=== PATIENT | female | born 1960 | race Caucasian/White ===

== ENCOUNTER 2019-06-27 12:50 | Inpatient (IN) | payer BC ==
[2019-06-27] MEDS ORDERED: SODIUM CHLORIDE 0.9% 1,000 ML IV STA (13:22)
[2019-06-27] MEDS ORDERED: HYDROmorphone 0.5 MG/0.5 ML SYRINGE IVP STA (13:33)
[2019-06-27] MEDS ORDERED: ONDANSETRON 4 MG/2 ML VIAL IVP STA (13:33)
--- NOTE | 2019-06-27 13:36 | ED ---
Abdominal Pain HPI - General Source: patient, RN notes reviewed Mode of arrival: ambulatory Limitations: no limitations <Saul Nazario - Last Filed: 06/27/19 14:49> <Blade Giron - Last Filed: 06/27/19 15:58> - General Chief Complaint: Abdominal Pain Stated Complaint: abd pain Time Seen by Provider: 06/27/19 13:22 - History of Present Illness Initial Comments: 58-year-old female presents emergency Department with chief complaint of abdominal pain. Patient states pain started yesterday afternoon but worsened about cannot tolerate around 3:00 this morning. She's had associated nausea vomiting. Patient states she seen in urgent care and sent here for further evaluation. Patient states she does have a history of breast cancer states that she'll lumpectomy in April scheduled to start radiation. Patient denies any fevers or chills. Patient denies any significant diarrhea or dysuria. Patient offers no complaints. (Saul Nazario) - Related Data Allergies Allergy/AdvReac Type Severity Reaction Status Date / Time No Known Allergies Allergy Verified 06/27/19 13:02 Review of Systems ROS Other: All systems not noted in ROS Statement are negative. <Saul Nazario - Last Filed: 06/27/19 14:49> ROS Other: All systems not noted in ROS Statement are negative. <Blade Giron - Last Filed: 06/27/19 15:58> ROS Statement: Those systems with pertinent positive or pertinent negative responses have been documented in the HPI. Past Medical History Past Medical History: Hypertension History of Any Multi-Drug Resistant Organisms: None Reported Additional Past Surgical History / Comment(s): Breast CA Smoking Status: Current some day smoker Past Alcohol Use History: Occasional Past Drug Use History: None Reported <Saul Nazario - Last Filed: 06/27/19 14:49> General Exam Limitations: no limitations General appearance: alert, in no apparent distress Head exam: Present: atraumatic, normocephalic, normal inspection Eye exam: Present: normal appearance, PERRL, EOMI. Absent: scleral icterus, conjunctival injection, periorbital swelling ENT exam: Present: normal exam, normal oropharynx, mucous membranes moist Neck exam: Present: normal inspection. Absent: tenderness, meningismus, lymphadenopathy Respiratory exam: Present: normal lung sounds bilaterally. Absent: respiratory distress, wheezes, rales, rhonchi, stridor Cardiovascular Exam: Present: regular rate, normal rhythm, normal heart sounds. Absent: systolic murmur, diastolic murmur, rubs, gallop, clicks GI/Abdominal exam: Present: soft, tenderness (Moderate to severe right upper quadrant tenderness), normal bowel sounds. Absent: distended, guarding, rebound, rigid Back exam: Absent: CVA tenderness (R), CVA tenderness (L) Neurological exam: Present: alert Skin exam: Present: warm, dry, intact, normal color. Absent: rash <Saul Nazario - Last Filed: 06/27/19 14:49> Course <Blade Giron - Last Filed: 06/27/19 15:58> Vital Signs 06/27/19 12:56 Temperature 97.8 F Pulse Rate 79 Respiratory 18 Rate Blood Pressure 166/105 O2 Sat by Pulse 99 Oximetry - Reevaluation(s) Reevaluation #1: 06/27/19 15:57 PA supervision: I proceeded [id number] evaluation the patient does present w ith complains right upper quadrant abdominal pain. It did start yesterday. He's had intermittent episodes of this over the past several months. He is found on evaluation have a tender right upper quadrant does have elevation of her liver enzymes and bilirubin. Ultrasound shows evidence of multiple gallstones and thickened gallbladder wall the common bile duct however does not appear to be dilated at this time. I did discuss the case with Dr. Ohara as well as Dr. Hartman. Patient will be admitted place an IV antibiotics GI will be consulted for consideration of ERCP. (Blade Giron) Medical Decision Making - Lab Data Result diagrams: 06/27/19 13:31 06/27/19 13:31 <Saul Nazario - Last Filed: 06/27/19 14:49> - Lab Data Result diagrams: 06/27/19 13:31 06/27/19 13:31 <Blade Giron - Last Filed: 06/27/19 15:58> - Medical Decision Making Patient's found to have cholelithiasis with evidence of acute cholecystitis. Patient was placed on antibiotics. Patient will be admitted for possible ERCP and cholecystectomy. (Saul Nazario) - Lab Data Lab Results 03/05/20 03/05/20 03/05/20 Range/Units 13:31 13:31 13:31 WBC 6.5 (3.8-10.6) k/uL RBC 5.11 (3.80-5.40) m/uL Hgb 15.1 (11.4-16.0) gm/dL Hct 45.0 (34.0-46.0) % MCV 88.1 (80.0-100.0) fL MCH 29.5 (25.0-35.0) pg MCHC 33.5 (31.0-37.0) g/dL RDW 12.8 (11.5-15.5) % Plt Count 230 (150-450) k/uL Neutrophils % 80 % Lymphocytes % 12 % Monocytes % 5 % Eosinophils % 1 % Basophils % 1 % Neutrophils # 5.2 (1.3-7.7) k/uL Lymphocytes # 0.8 L (1.0-4.8) k/uL Monocytes # 0.3 (0-1.0) k/uL Eosinophils # 0.1 (0-0.7) k/uL Basophils # 0.1 (0-0.2) k/uL PT 10.3 (9.0-12.0) sec INR 1.0 (<1.2) APTT 24.3 (22.0-30.0) sec Sodium 136 L (137-145) mmol/L Potassium 4.2 (3.5-5.1) mmol/L Chloride 103 (98-107) mmol/L Carbon Dioxide 26 (22-30) mmol/L Anion Gap 7 mmol/L BUN 17 (7-17) mg/dL Creatinine 0.67 (0.52-1.04) mg/dL Est GFR (CKD-EPI)AfAm >90 (>60 ml/min/1.73 sqM) Est GFR (CKD-EPI)NonAf >90 (>60 ml/min/1.73 sqM) Glucose 127 H (74-99) mg/dL Calcium 9.5 (8.4-10.2) mg/dL Total Bilirubin 3.7 H (0.2-1.3) mg/dL AST 1210 H (14-36) U/L ALT 1284 H (4-34) U/L Alkaline Phosphatase 151 H (38-126) U/L Total Protein 7.0 (6.3-8.2) g/dL Albumin 4.5 (3.5-5.0) g/dL Amylase 33 (30-110) U/L Lipase 96 (23-300) U/L Urine Color Urine Appearance (Clear) Urine pH (5.0-8.0) Ur Specific [place] (1.001-1.035) Urine Protein (Negative) Urine Glucose (UA) (Negative) Urine Ketones (Negative) Urine Blood (Negative) Urine Nitrite (Negative) Urine Bilirubin (Negative) Urine Urobilinogen (<2.0) mg/dL Ur Leukocyte Esterase (Negative) Urine RBC (0-5) /hpf Urine WBC (0-5) /hpf Ur Squamous Epith Cells (0-4) /hpf Urine Bacteria (None) /hpf Urine Mucus (None) /hpf 06/27/19 Range/Units 14:40 WBC (3.8-10.6) k/uL RBC (3.80-5.40) m/uL Hgb (11.4-16.0) gm/dL Hct (34.0-46.0) % MCV (80.0-100.0) fL MCH (25.0-35.0) pg MCHC (31.0-37.0) g/dL RDW (11.5-15.5) % Plt Count (150-450) k/uL Neutrophils % % Lymphocytes % % Monocytes % % Eosinophils % % Basophils % % Neutrophils # (1.3-7.7) k/uL Lymphocytes # (1.0-4.8) k/uL Monocytes # (0-1.0) k/uL Eosinophils # (0-0.7) k/uL Basophils # (0-0.2) k/uL PT (9.0-12.0) sec INR (<1.2) APTT (22.0-30.0) sec Sodium (137-145) mmol/L Potassium (3.5-5.1) mmol/L Chloride (98-107) mmol/L Carbon Dioxide (22-30) mmol/L Anion Gap mmol/L BUN (7-17) mg/dL Creatinine (0.52-1.04) mg/dL Est GFR (CKD-EPI)AfAm (>60 ml/min/1.73 sqM) Est GFR (CKD-EPI)NonAf (>60 ml/min/1.73 sqM) Glucose (74-99) mg/dL Calcium (8.4-10.2) mg/dL Total Bilirubin (0.2-1.3) mg/dL AST (14-36) U/L ALT (4-34) U/L Alkaline Phosphatase (38-126) U/L Total Protein (6.3-8.2) g/dL Albumin (3.5-5.0) g/dL Amylase (30-110) U/L Lipase (23-300) U/L Urine Color Dark Yellow Urine Appearance Clear (Clear) Urine pH 6.5 (5.0-8.0) Ur Specific [place] 1.028 (1.001-1.035) Urine Protein 1+ H (Negative) Urine Glucose (UA) Negative (Negative) Urine Ketones 1+ H (Negative) Urine Blood Small H (Negative) Urine Nitrite Negative (Negative) Urine Bilirubin 2+ H (Negative) Urine Urobilinogen 12.0 (<2.0) mg/dL Ur Leukocyte Esterase Small H (Negative) Urine RBC 16 H (0-5) /hpf Urine WBC 2 (0-5) /hpf Ur Squamous Epith Cells 3 (0-4) /hpf Urine Bacteria Rare H (None) /hpf Urine Mucus Rare H (None) /hpf Disposition <Saul Nazario - Last Filed: 06/27/19 14:49> <Blade Giron - Last Filed: 06/27/19 15:58> Clinical Impression: Cholecystitis, acute with cholelithiasis, Hyperbilirubinemia, Transaminitis Disposition: ADMITTED IP TO THIS [facility] Condition: Fair Referrals: Nonstaff,Physician [Primary Care Provider] - 1-2 days
[2019-06-27 13:53] LABS: Basophils # (A) 0.1 k/uL (0-0.2); Basophils % (A) 1 %; Eosinophils # (A) 0.1 k/uL (0-0.7); Eosinophils % (A) 1 %; HGB 15.1 gm/dL (11.4-16.0); Lymphocytes # (A) 0.8 k/uL (1.0-4.8); Lymphocytes % (A) 12 %; MCH 29.5 pg (25.0-35.0); MCHC 33.5 g/dL (31.0-37.0); MCV 88.1 fL (80.0-100.0); Mean Platelet Volume 6.6; Monocytes # (A) 0.3 k/uL (0-1.0); Monocytes % (A) 5 %; Neutrophils # (A) 5.2 k/uL (1.3-7.7); Neutrophils % (A) 80 %; Platelet Count 230 k/uL (150-450); RBC 5.11 m/uL (3.80-5.40); RDW 12.8 % (11.5-15.5); WBC 6.5 k/uL (3.8-10.6)
[2019-06-27 14:11] LABS: African American GFR (CKD) >90 (>60 ml/min/1.73 sqM); Albumin 4.5 g/dL (3.5-5.0); Alkaline Phosphatase 151 U/L (38-126); Amylase 33 U/L (30-110); Anion Gap 7 mmol/L; Blood Urea Nitrogen 17 mg/dL (7-17); Calcium 9.5 mg/dL (8.4-10.2); Carbon Dioxide 26 mmol/L (22-30); Chloride 103 mmol/L (98-107); Glucose 127 mg/dL (74-99); Non-African American GFR(CKD) >90 (>60 ml/min/1.73 sqM); Potassium 4.2 mmol/L (3.5-5.1); Sodium 136 mmol/L (137-145); Total Bilirubin 3.7 mg/dL (0.2-1.3)
[2019-06-27 14:13] LABS: Partial Thromboplastin Time 24.3 sec (22.0-30.0); Prothrombin Time 10.3 sec (9.0-12.0)
[2019-06-27 14:19] LABS: AST 1210 U/L (14-36)
[2019-06-27 14:20] LABS: ALT 1284 U/L (4-34)
--- NOTE | 2019-06-27 14:36 | US ---
EXAMINATION TYPE: US gallbladder DATE OF EXAM: 06/27/2019 COMPARISON: NONE CLINICAL HISTORY: pain. Abdomen pain and N/V x 2 days EXAM MEASUREMENTS: Liver Length: 15.9 cm Gallbladder Wall: 0.4 cm CBD: 0.4 cm Right Kidney: 9.9 x 4.4 x 4.1 cm Pancreas: obscured by overlying midline bowel gas Liver: wnl Gallbladder: multiple shadowing stones seen, wall mildly thickened at 0.4cm Evidence for sonographic De's sign: yes CBD: visualized portions wnl, limited by overlying bowel gas Right Kidney: wnl IMPRESSION: 1. Cholelithiasis, gallbladder wall thickening, and positive sonographic De sign. Early acute cho lecystitis is suspected despite the normal caliber of the common bile duct. Correlate with physical e xam and serum laboratory values. 2. Pancreas is obscured by overlying bowel gas.
[2019-06-27] MEDS ORDERED: PIPERACILLIN-TAZOBACTAM 3.375 GM in SODIUM CHLORIDE 0.9% 100 ML IVPB STA (14:49)
[2019-06-27 14:51] LABS: Appearance,Urine Clear (Clear); Bacteria,Urine Rare /hpf; Bilirubin,Urine 2+ (Negative); Blood,Urine Small (Negative); Color,Urine Dark Yellow; Glucose,Urine (UA) Negative (Negative); Ketones,Urine 1+ (Negative); Leukocyte Esterase,Urine Small (Negative); Mucus,Urine Rare /hpf; Nitrite,Urine Negative (Negative); PH, Urine 6.5 (5.0-8.0); Protein,Urine 1+ (Negative); RBC,Urine 16 /hpf (0-5); Specific Gravity,Urine 1.028 (1.001-1.035); Squamous Epithelial Cell,Urine 3 /hpf (0-4); WBC,Urine 2 /hpf (0-5)
[2019-06-27] MEDS ORDERED: NALOXONE 0.4 MG/ML 1 ML VIAL IV PRN (15:44)
[2019-06-27] MEDS: HYDROmorphone 0.5 MG/0.5 ML SYRINGE IVP PRN ×2 (16:42→20:25)
[2019-06-27] MEDS: SODIUM CHLORIDE 0.9% 1,000 ML IV SCH (17:02)
--- NOTE | 2019-06-27 19:58 | P.HPIM ---
History of Present Illness H&P Date: 06/27/19 Chief Complaint: Abdominal pain Patient is a 58-year-old female with breast cancer with recent vasectomy due to start radiation on 07/03/22 at [facility], hypertension, and intermittent tobacco use who presented to the emergency department with abdominal pain. In the emergency department she underwent an extensive evaluation. Her vital signs within normal limits on admission. Her initial laboratory analysis showed sodium 136, glucose 127, bilirubin 3.7, AST 112 210, ALT 1284, alkaline phosphatase of 151. She underwent a liver ultrasound which showed gallstones consistent with acute cholecystitis. They were unable to visualize all of the common bile duct. She was admitted to Dr. Ohara we are asked to consult for medical management. Patient seen and examined at bedside. She reports Abdominal pain starting yesterday and worsened at 3 am. Pain in RUQ and radiate to back and right shoulder. + nausea and vomiting, decreased appetitie, no diarrhea or constipation. No fevers. Having intermitted bouts for the last several months. Lumpectomy due to breast cancer, due to start radiation next 07/04/2019. Stage I nothing in the nodes, ER/CA +, Her2 negative. Review of Systems Pertinent positives and negatives as discussed in HPI, a complete review of systems was performed and all other systems are negative. Past Medical History Past Medical History: Hypertension Additional Past Medical History / Comment(s): breast cancer History of Any Multi-Drug Resistant Organisms: None Reported Additional Past Surgical History / Comment(s): Lumpectomy, catarect, bu nionectomy X 2, Histosalpingogram Smoking Status: Current some day smoker Past Alcohol Use History: Occasional Past Drug Use History: None Reported Additional History: special manager medical device, smoking and drinking on girls night out only. - Past Family History Father Family Medical History: Diabetes Mellitus Additional Family Medical History / Comment(s): COPD, CHF, no hx of [place] Medications and Allergies Home Medications Medication Instructions Recorded Confirmed Type Acetaminophen Tab [Tylenol] 650 mg PO Q6H PRN 06/27/19 06/27/19 History Ibuprofen [Advil] 800 mg PO Q8HR PRN 06/27/19 06/27/19 History Lisinopril-Hctz 20-12.5 mg 1 tab PO DAILY 06/27/19 06/27/19 History [Zestoretic 20-12.5] Allergies Allergy/AdvReac Type Severity Reaction Status Date / Time No Known Allergies Allergy Verified 06/27/19 19:04 Physical Exam Osteopathic Statement: *. No significant issues noted on an osteopathic structural exam other than those noted in the History and Physical/Consult. Vitals: Vital Signs Temp Pulse Resp BP BP Pulse Ox 06/27/19 17:41 98.0 F 16 162/70 96 06/27/19 16:45 98.2 F 75 16 148/89 98 06/27/19 12:56 97.8 F 79 18 166/105 99 Intake and Output 06/27/19 06/27/19 06/27/19 06:59 14:59 22:59 Other: Weight 78.925 kg 78.925 kg General: non toxic, no distress, appears at stated age, normal weight Derm: no unusual rashes/lesions no unusual ecchymoses, warm, dry Head: atraumatic, normocephalic, symmetric Eyes: EOMI, no lid lag, anicteric sclera, pupils equal round reactive to light ENT: Nose and ears atraumatic, no thrush, no pharyngeal erythema Neck: No thyromegaly, no cervical lymphadenopathy, trachea midline, supple Mouth: no lip lesion, mucus membranes moist Cardiovascular: S1S2 reg, no murmur, positive posterior tibial pulse bilateral, trace edema, capillary refill less than 2 seconds Lungs: CTA bilateral, no rhonchi, no rales , no accessory muscle use Abdominal: soft, + tender to palpation RUQ, no guarding, no appreciable organomegaly, normal bowel sounds Ext: no gross muscle atrophy, muscle strength grossly intact, no contractures, Neuro: CN II-XI grossly intact, light touch intact all 4 extremities, finger to nose within normal limits, Psych: Alert, oriented, appropriate affect Results CBC & Chem 7: 06/27/19 13:31 06/27/19 13:31 Labs: Abnormal Lab Results - Last 24 Hours (Table) 06/27/19 06/27/19 06/27/19 Range/Units 13:31 13:31 14:40 Lymphocytes # 0.8 L (1.0-4.8) k/uL Sodium 136 L (137-145) mmol/L Glucose 127 H (74-99) mg/dL Total Bilirubin 3.7 H (0.2-1.3) mg/dL AST 1210 H (14-36) U/L ALT 1284 H (4-34) U/L Alkaline Phosphatase 151 H (38-126) U/L Urine Protein 1+ H (Negative) Urine Ketones 1+ H (Negative) Urine Blood Small H (Negative) Urine Bilirubin 2+ H (Negative) Ur Leukocyte Esterase Small H (Negative) Urine RBC 16 H (0-5) /hpf Urine Bacteria Rare H (None) /hpf Urine Mucus Rare H (None) /hpf US - abdomen: report reviewed Thrombosis Risk Factor Assmnt - DVT/VTE Prophylaxis DVT/VTE Prophylaxis: Pharmacologic Prophylaxis ordered Assessment and Plan Assessment: Acute cholecystitis - surgery and GI consult - pain control - no indications for abx at this point in time - ice chips only Breast cancer - awaiting starting radiation due to start 07/04/19 HTN, controlled - resume lisinopril - follow BP Patient is medically optimized for surgery. No further testing needed. Thank you for allowing us to participate in the care of this pleasant patient. Do not hesitate to contact us with questions. Someone can be reached from the [facility] hospitalist group all hours of the day at [phone] or via perfect serve.
[2019-06-27] MEDS: ONDANSETRON 4 MG/2 ML VIAL IVP PRN (20:27)
[2019-06-28] MEDS: HYDROmorphone 0.5 MG/0.5 ML SYRINGE IVP PRN ×4 (00:59→13:54)
[2019-06-28] MEDS: SODIUM CHLORIDE 0.9% 1,000 ML IV SCH ×2 (05:27→19:30)
[2019-06-28] MEDS: LISINOPRIL-HCTZ 20-12.5 MG 1 EACH TAB PO SCH (07:14)
[2019-06-28 07:55] LABS: HCT 38.7 % (34.0-46.0); MCH 30.2 pg (25.0-35.0); MCHC 33.7 g/dL (31.0-37.0); MCV 89.7 fL (80.0-100.0); Mean Platelet Volume 6.9; Platelet Count 158 k/uL (150-450); RBC 4.31 m/uL (3.80-5.40); WBC 7.1 k/uL (3.8-10.6)
[2019-06-28 08:03] LABS: Prothrombin Time 10.7 sec (9.0-12.0)
[2019-06-28 08:12] LABS: AST 419 U/L (14-36); African American GFR (CKD) >90 (>60 ml/min/1.73 sqM); Albumin 3.6 g/dL (3.5-5.0); Alkaline Phosphatase 134 U/L (38-126); Anion Gap 5 mmol/L; Blood Urea Nitrogen 10 mg/dL (7-17); Calcium 8.8 mg/dL (8.4-10.2); Carbon Dioxide 25 mmol/L (22-30); Chloride 109 mmol/L (98-107); Glucose 100 mg/dL (74-99); Non-African American GFR(CKD) >90 (>60 ml/min/1.73 sqM); Potassium 3.9 mmol/L (3.5-5.1); Sodium 139 mmol/L (137-145); Total Bilirubin 4.1 mg/dL (0.2-1.3)
[2019-06-28 08:21] LABS: ALT 877 U/L (4-34)
--- NOTE | 2019-06-28 10:58 | P.GSCN ---
<Milady Lara A - Last Filed: 06/28/19 10:56> History of Present Illness Consult date: 06/28/19 Reason for Consult: Acute cholecystitis, cholelithiasis Requesting physician: Saul Nazario History of present illness: CHIEF COMPLAINT: Abdominal pain HISTORY OF PRESENT ILLNESS: 58-year-old female who presented to the emergency room a chief complaint of abdominal pain. Patient reports she began having right upper quadrant pain. She reports nausea and vomiting yesterday as well. She denies fever or chills. Denies diarrhea or constipation. Patient reports she has been having intermittent right upper quadrant pain for the past 2-3 months. She reports attributing this to heartburn and states she would take [id number] antacids when she had discomfort. Patient also reports a history of breast cancer and states she is supposed to begin radiation next week at [facility]. PAST MEDICAL HISTORY: See list. PAST SURGICAL HISTORY: See list. SOCIAL HISTORY: No illicit drug use. REVIEW OF SYSTEMS: CONSTITUTIONAL: Denies fever or chills. HEENT: Denies blurred vision, vision changes, or eye pain. Denies hemoptysis CARDIOVASCULAR: Denies chest pain or pressure. RESPIRATORY: No shortness of breath. GASTROINTESTINAL: Refer to HPI for pertinent findings HEMATOLOGIC: Denies bleeding disorders. GENITOURINARY: Denies any blood in urine. SKIN: Denies pruitis. Denies rash. PHYSICAL EXAM: VITAL SIGNS: Reviewed. GENERAL: Well-developed in no acute distress. HEENT: No sclera icterus. Extraocular movements grossly intact. Moist buccal mucosa. Head is atraumatic, normocephalic. ABDOMEN: Soft. Nondistended. Tenderness with palpation of right upper quadrant. NEUROLOGIC: Alert and oriented. Cranial nerves II through XII grossly intact. LABORATORY DATA: WBC 7.1. Hemoglobin 13.0. Platelet count 158. Sodium 139. Potassium 3.9. Bilirubin 4.1. AST 419. ALT 877. Alkaline phosphatase 134. IMAGING: Gallbladder ultrasound: Cholelithiasis. Gallbladder wall thickening measuring 0.4 cm. Positive sonographic De sign. Early acute cholecystitis was suspected. Visualized portion of common bile duct measuring within normal limits at 0.4 cm. ASSESSMENT: 1. Right upper quadrant abdominal pain 2. Possible acute cholecystitis 3. Cholelithiasis, possible choledocholithiasis 4. Hyperbilirubinemia 5. Transaminitis PLAN: -NPO. Continue IV fluids -GI/DVT prophylaxis -Case discussed with GI. Patient to undergo ERCP this afternoon with Dr. Lee -Medical management per [facility] hospitalist -Daily CMP -Laparoscopic cholecystectomy when medically stable Nurse practitioner note has been reviewed by physician. Signing provider agrees with the documented findings, assessment, and plan of care. Past Medical History Past Medical History: Hypertension Additional Past Medical History / Comment(s): breast cancer History of Any Multi-Drug Resistant Organisms: None Reported Additional Past Surgical History / Comment(s): Lumpectomy, catarect, bunionectomy X 2, Histosalpingogram Smoking Status: Current some day smoker Past Alcohol Use History: Occasional Past Drug Use History: None Reported - Past Family History Father Family Medical History: Diabetes Mellitus Additional Family Medical History / Comment(s): COPD, CHF, no hx of [place] Medications and Allergies Home Medications Medication Instructions Recorded Confirmed Type Acetaminophen Tab [Tylenol] 650 mg PO Q6H PRN 06/27/19 06/27/19 History Ibuprofen [Advil] 800 mg PO Q8HR PRN 06/27/19 06/27/19 History Lisinopril-Hctz 20-12.5 mg 1 tab PO DAILY 06/27/19 06/27/19 History [Zestoretic 20-12.5] Allergies Allergy/AdvReac Type Severity Reaction Status Date / Time No Known Allergies Allergy Verified 06/27/19 19:04 Surgical - Exam Vital Signs Temp Pulse Resp BP Pulse Ox 97.8 F 79 18 166/105 99 06/27/19 12:56 06/27/19 12:56 06/27/19 12:56 06/27/19 12:56 06/27/19 12:56 Results - Labs 06/28/19 07:05 06/28/19 07:05 Abnormal Lab Results - Last 24 Hours (Table) 06/27/19 06/27/19 06/27/19 Range/Units 13:31 13:31 14:40 Lymphocytes # 0.8 L (1.0-4.8) k/uL Sodium 136 L (137-145) mmol/L Chloride (98-107) mmol/L Glucose 127 H (74-99) mg/dL Total Bilirubin 3.7 H (0.2-1.3) mg/dL AST 1210 H (14-36) U/L ALT 1284 H (4-34) U/L Alkaline Phosphatase 151 H (38-126) U/L Total Protein (6.3-8.2) g/dL Urine Protein 1+ H (Negative) Urine Ketones 1+ H (Negative) Urine Blood Small H (Negative) Urine Bilirubin 2+ H (Negative) Ur Leukocyte Esterase Small H (Negative) Urine RBC 16 H (0-5) /hpf Urine Bacteria Rare H (None) /hpf Urine Mucus Rare H (None) /hpf 06/28/19 Range/Units 07:05 Lymphocytes # (1.0-4.8) k/uL Sodium (137-145) mmol/L Chloride 109 H (98-107) mmol/L Glucose 100 H (74-99) mg/dL Total Bilirubin 4.1 H (0.2-1.3) mg/dL AST 419 H (14-36) U/L ALT 877 H (4-34) U/L Alkaline Phosphatase 134 H (38-126) U/L Total Protein 6.0 L (6.3-8.2) g/dL Urine Protein (Negative) Urine Ketones (Negative) Urine Blood (Negative) Urine Bilirubin (Negative) Ur Leukocyte Esterase (Negative) Urine RBC (0-5) /hpf Urine Bacteria (None) /hpf Urine Mucus (None) /hpf Diabetes panel 06/27/19 06/28/19 Range/Units 13:31 07:05 Sodium 136 L 139 (137-145) mmol/L Potassium 4.2 3.9 (3.5-5.1) mmol/L Chloride 103 109 H (98-107) mmol/L Carbon Dioxide 26 25 (22-30) mmol/L BUN 17 10 (7-17) mg/dL Creatinine 0.67 0.64 (0.52-1.04) mg/dL Glucose 127 H 100 H (74-99) mg/dL Calcium 9.5 8.8 (8.4-10.2) mg/dL AST 1210 H 419 H (14-36) U/L ALT 1284 H 877 H (4-34) U/L Alkaline Phosphatase 151 H 134 H (38-126) U/L Total Protein 7.0 6.0 L (6.3-8.2) g/dL Albumin 4.5 3.6 (3.5-5.0) g/dL Calcium panel 06/27/19 06/28/19 Range/Units 13:31 07:05 Calcium 9.5 8.8 (8.4-10.2) mg/dL Albumin 4.5 3.6 (3.5-5.0) g/dL Pituitary panel 06/27/19 06/28/19 Range/Units 13:31 07:05 Sodium 136 L 139 (137-145) mmol/L Potassium 4.2 3.9 (3.5-5.1) mmol/L Chloride 103 109 H (98-107) mmol/L Carbon Dioxide 26 25 (22-30) mmol/L BUN 17 10 (7-17) mg/dL Creatinine 0.67 0.64 (0.52-1.04) mg/dL Glucose 127 H 100 H (74-99) mg/dL Calcium 9.5 8.8 (8.4-10.2) mg/dL Adrenal panel 06/27/19 06/28/19 Range/Units 13:31 07:05 Sodium 136 L 139 (137-145) mmol/L Potassium 4.2 3.9 (3.5-5.1) mmol/L Chloride 103 109 H (98-107) mmol/L Carbon Dioxide 26 25 (22-30) mmol/L BUN 17 10 (7-17) mg/dL Creatinine 0.67 0.64 (0.52-1.04) mg/dL Glucose 127 H 100 H (74-99) mg/dL Calcium 9.5 8.8 (8.4-10.2) mg/dL Total Bilirubin 3.7 H 4.1 H (0.2-1.3) mg/dL AST 1210 H 419 H (14-36) U/L ALT 1284 H 877 H (4-34) U/L Alkaline Phosphatase 151 H 134 H (38-126) U/L Total Protein 7.0 6.0 L (6.3-8.2) g/dL Albumin 4.5 3.6 (3.5-5.0) g/dL <Anthony Ohara - Last Filed: 06/28/19 13:59> History of Present Illness History of present illness: As above. Patient with evidence of choledocholithiasis and concurrent cholecystitis. Agree with plans for ERCP today. We'll schedule for laparoscopic cholecystectomy on Monday unless the patient feels well enough to go home over the weekend. Surgical - Exam Vital Signs Temp Pulse Resp BP Pulse Ox 97.8 F 79 18 166/105 99 06/27/19 12:56 06/27/19 12:56 06/27/19 12:56 06/27/19 12:56 06/27/19 12:56 Results - Labs 06/28/19 07:05 06/28/19 07:05 Abnormal Lab Results - Last 24 Hours (Table) 06/27/19 06/27/19 06/28/19 Range/Units 13:31 14:40 07:05 Sodium 136 L (137-145) mmol/L Chloride 109 H (98-107) mmol/L Glucose 127 H 100 H (74-99) mg/dL Total Bilirubin 3.7 H 4.1 H (0.2-1.3) mg/dL AST 1210 H 419 H (14-36) U/L ALT 1284 H 877 H (4-34) U/L Alkaline Phosphatase 151 H 134 H (38-126) U/L Total Protein 6.0 L (6.3-8.2) g/dL Urine Protein 1+ H (Negative) Urine Ketones 1+ H (Negative) Urine Blood Small H (Negative) Urine Bilirubin 2+ H (Negative) Ur Leukocyte Esterase Small H (Negative) Urine RBC 16 H (0-5) /hpf Urine Bacteria Rare H (None) /hpf Urine Mucus Rare H (None) /hpf Diabetes panel 06/27/19 06/28/19 Range/Units 13:31 07:05 Sodium 136 L 139 (137-145) mmol/L Potassium 4.2 3.9 (3.5-5.1) mmol/L Chloride 103 109 H (98-107) mmol/L Carbon Dioxide 26 25 (22-30) mmol/L BUN 17 10 (7-17) mg/dL Creatinine 0.67 0.64 (0.52-1.04) mg/dL Glucose 127 H 100 H (74-99) mg/dL Calcium 9.5 8.8 (8.4-10.2) mg/dL AST 1210 H 419 H (14-36) U/L ALT 1284 H 877 H (4-34) U/L Alkaline Phosphatase 151 H 134 H (38-126) U/L Total Protein 7.0 6.0 L (6.3-8.2) g/dL Albumin 4.5 3.6 (3.5-5.0) g/dL Calcium panel 06/27/19 06/28/19 Range/Units 13:31 07:05 Calcium 9.5 8.8 (8.4-10.2) mg/dL Albumin 4.5 3.6 (3.5-5.0) g/dL Pituitary panel 06/27/19 06/28/19 Range/Units 13:31 07:05 Sodium 136 L 139 (137-145) mmol/L Potassium 4.2 3.9 (3.5-5.1) mmol/L Chloride 103 109 H (98-107) mmol/L Carbon Dioxide 26 25 (22-30) mmol/L BUN 17 10 (7-17) mg/dL Creatinine 0.67 0.64 (0.52-1.04) mg/dL Glucose 127 H 100 H (74-99) mg/dL Calcium 9.5 8.8 (8.4-10.2) mg/dL Adrenal panel 06/27/19 06/28/19 Range/Units 13:31 07:05 Sodium 136 L 139 (137-145) mmol/L Potassium 4.2 3.9 (3.5-5.1) mmol/L Chloride 103 109 H (98-107) mmol/L Carbon Dioxide 26 25 (22-30) mmol/L BUN 17 10 (7-17) mg/dL Creatinine 0.67 0.64 (0.52-1.04) mg/dL Glucose 127 H 100 H (74-99) mg/dL Calcium 9.5 8.8 (8.4-10.2) mg/dL Total Bilirubin 3.7 H 4.1 H (0.2-1.3) mg/dL AST 1210 H 419 H (14-36) U/L ALT 1284 H 877 H (4-34) U/L Alkaline Phosphatase 151 H 134 H (38-126) U/L Total Protein 7.0 6.0 L (6.3-8.2) g/dL Albumin 4.5 3.6 (3.5-5.0) g/dL
[2019-06-28] MEDS ORDERED: INDOMETHACIN 50MG SUPPOSITORY RECTAL ONE (13:30)
[2019-06-28] MEDS ORDERED: LEVOFLOXACIN 500MG-D5W PMX 500 MG in DEXTROSE/WATER 1 100ML.BAG IVPB ONE (13:30)
[2019-06-28] MEDS ORDERED: FLUCONAZOLE 150 MG TAB PO ONE (16:00)
[2019-06-28] MEDS ORDERED: IV FLUID CONTINUATION 1,000 ML IV ONE (16:07)
[2019-06-28] MEDS ORDERED: MIDAZOLAM 2 MG/2 ML VIAL IVP ONE (16:24)
--- NOTE | 2019-06-28 16:39 | P.PN ---
Subjective Progress Note Date: 06/28/19 (delayed charting seen at 0945) Principal diagnosis: abdominal pain Patient is a 58-year-old female with breast cancer with recent vasectomy due to start radiation on 07/03/[address] [facility], hypertension, and intermittent tobacco use who presented to the emergency department with abdominal pain. In the emergency department she underwent an extensive evaluation. Her vital signs within normal limits on admission. Her initial laboratory analysis showed sodium 136, glucose 127, bilirubin 3.7, AST 112 210, ALT 1284, alkaline phosphatase of 151. She underwent a liver ultrasound which showed gallstones consistent with acute cholecystitis. They were unable to visualize all of the common bile duct. She was admitted to Dr. Ohara we are asked to consult for medical management, she was transitioned to our serivce. ERCP on 06/27 Patient seen and examined at bedside. She reports that she is having an increase in her right upper quadrant pain. No chest pain, shortness breath, nausea or vomiting. She really wants samples procedures today, I have told that this is not possible that surgery will be scheduled per surgical services. Objective - Vital Signs Vital signs: Vital Signs Temp 98.6 F 06/28/19 07:56 Pulse 75 06/28/19 16:10 Resp 14 06/28/19 16:10 BP 135/68 06/28/19 16:10 Pulse Ox 97 06/28/19 16:10 Intake & Output 06/27/19 06/28/19 06/28/19 18:59 06:59 18:59 Intake Total 937.5 Balance 937.5 Weight 78.925 kg Intake: Intake, IV Titration 937.5 Amount Sodium Chloride 0.9% 1, 937.5 000 ml @ 75 mls/hr IV . [id number] [facility] Rx#:[id number] Other: Voiding Method Toilet # Voids 2 3 - Exam General: non toxic, mild distress due to pain, appears at stated age Derm: warm, dry Head: atraumatic, normocephalic, symmetric Eyes: EOMI, no lid lag, anicteric sclera Mouth: no lip lesion, mucus membranes moist Cardiovascular: S1S2 reg, no murmur, positive posterior tibial pulse bilateral, Lungs: CTA bilateral, no rhonchi, no rales , no accessory muscle use Abdominal: soft, +tender to palpation RUQ, no guarding, no appreciable organomegaly Ext: no gross muscle atrophy, no edema, no contractures Neuro: CN II-XI grossly intact, no focal neuro deficits Psych: Alert, oriented, appropriate affect - Labs CBC & Chem 7: 06/28/19 07:05 06/28/19 07:05 Labs: Abnormal Lab Results - Last 24 Hours (Table) 06/28/19 Range/Units 07:05 Chloride 109 H (98-107) mmol/L Glucose 100 H (74-99) mg/dL Total Bilirubin 4.1 H (0.2-1.3) mg/dL AST 419 H (14-36) U/L ALT 877 H (4-34) U/L Alkaline Phosphatase 134 H (38-126) U/L Total Protein 6.0 L (6.3-8.2) g/dL Assessment and Plan Assessment: Acute cholecystitis with possible choledocholithiasis, Transaminitis - ERCP today - Medically stable for silvia when surgery available. Apparently This can not be done until 07/01/19. - pain control - antiemetics Breast cancer - awaiting to start radiation due to start 07/04/19 call [facility] to arrange follow-up and determine when she can start radiation. HTN, controlled - lisinopril - follow BP Patient is medically optimized for surgery. No further testing needed. DVT prophylaxis: Heparin Discussed with: Patient nursing, Milady Lara multiple times Anticipated discharge: 3-[address]: home A total of 25 minutes was spent on the care of this complex patient more than 50% of the time was spent in counseling and care coordination.
--- NOTE | 2019-06-28 17:08 | P.CONS ---
History of Present Illness - Reason for Consult Consult date: 06/28/19 Elevated bilirubin, suspected choledocholithiasis Requesting physician: Antionette Agrawal - Chief Complaint Abdominal pain - History of Present Illness 58-year-old female with a medical history significant for breast cancer status post mastectomy with plan for radiation at the [facility] on 07/03/22, hypertension and tobacco abuse who presented to the hospital with complaints of abdominal pain. The patient has been having intermittent episodes of abdominal pain over the past few months. She reports that the pain is severe in nature. She denies any nausea or vomiting. Pain is improved after being started on pain medications in the hospital. She underwent ultrasound of the liver on presentation with findings of cholelithiasis and gallbladder wall th ickening suggestive of cholecystitis with CBD reported as normal. Liver enzymes were elevated in both a cholestatic and hepatocellular pattern on presentation with a total bilirubin 3.7, alkaline phosphatase 154, AST 1210, and ALT 1284. Patient had a WBC of 7.1, hemoglobin 13 and platelet count of 158,000 with a normal INR. She denies any fevers or chills. Review of Systems REVIEW OF SYSTEMS: CONSTITUTIONAL: Denies any fevers, chills, weight change or fatigue. CARDIOVASCULAR: Denies any chest pain, palpitations high or low blood pressures RESPIRATORY: Denies any shortness of breath, hemoptysis or cough. GENITOURINARY: No dysuria or hematuria. MUSCULOSKELETAL: No weakness reported. SKIN: Denies any new rashes or lesions, jaundice or pallor. PSYCHIATRIC: Denies any depression or anxiety. NEUROLOGY: Denies headache, denies any new focal deficits. EARS/NOSE/THROAT: No recent hearing change, congestion, nasal discharge or sore throat. EYES: No pain in eyes, discharge or change in vision. GASTROINTESTINAL: As per HPI. Past Medical History Past Medical History: Hypertension Additional Past Medical History / Comment(s): breast cancer History of Any Multi-Drug Resistant Organisms: None Reported Additional Past Surgical History / Comment(s): Lumpectomy, catarect, bunionectomy X 2, Histosalpingogram Smoking Status: Current some day smoker Past Alcohol Use History: Occasional Past Drug Use History: None Reported - Past Family History Father Family Medical History: Diabetes Mellitus Additional Family Medical History / Comment(s): COPD, CHF, no hx of PA Medications and Allergies Home Medications Medication Instructions Recorded Confirmed Type Acetaminophen Tab [Tylenol] 650 mg PO Q6H PRN 06/27/19 06/27/19 History Ibuprofen [Advil] 800 mg PO Q8HR PRN 06/27/19 06/27/19 History Lisinopril-Hctz 20-12.5 mg 1 tab PO DAILY 06/27/19 06/27/19 History [Zestoretic 20-12.5] Allergies Allergy/AdvReac Type Severity Reaction Status Date / Time No Known Allergies Allergy Verified 06/28/19 15:55 Physical Exam Vitals: Vital Signs Temp Pulse Resp BP Pulse Ox 06/28/19 16:10 75 14 135/68 97 06/28/19 15:07 98.9 F 83 15 107/67 97 06/28/19 07:56 98.6 F 95 16 114/61 95 06/28/19 02:14 98.3 F 71 16 129/74 98 06/27/19 19:05 98.6 F 62 18 143/76 96 06/27/19 17:41 98.0 F 16 162/70 96 Intake and Output 06/28/19 06/28/19 06/28/19 06:59 14:59 22:59 Intake Total 675 Balance 675 Intake: Intake, IV Titration 675 Amount Sodium Chloride 0.9% 1, 675 000 ml @ 75 mls/hr IV . [id number] [facility] Rx#:[id number] Other: # Voids 3 On physical examination, patient appears comfortable in no apparent distress. HEAD: Normocephalic, atraumatic. EYES: No scleral icterus. No conjunctival injection. MOUTH: No lesions, tongue midline. NECK: Trachea midline, no gross abnormalities. CHEST: Clear to auscultation with no wheezing or rhonchi appreciated. HEART: Regular rate and rhythm. ABDOMEN: Soft, mildly tender to palpation worse in the right upper quadrant. Bowel sounds are positive. No organomegaly. No guarding or rigidity. EXTREMITIES: No pedal edema. SKIN: No rashes, no jaundice. NEUROLOGIC: Alert and oriented x3. No focal deficits. Results CBC & Chem 7: 06/28/19 07:05 06/28/19 07:05 Labs: Abnormal Lab Results - Last 24 Hours (Table) 06/28/19 Range/Units 07:05 Chloride 109 H (98-107) mmol/L Glucose 100 H (74-99) mg/dL Total Bilirubin 4.1 H (0.2-1.3) mg/dL AST 419 H (14-36) U/L ALT 877 H (4-34) U/L Alkaline Phosphatase 134 H (38-126) U/L Total Protein 6.0 L (6.3-8.2) g/dL US - abdomen: report reviewed (Ultrasound of the abdomen with findings of gallbladder wall thickening, cholelithiasis with no CBD dilation noted.) Assessment and Plan (1) Hyperbilirubinemia Narrative/Plan: 58-year-old female who presents to the hospital due to abdominal pain, severe in the right upper quadrant with associated elevation in her liver enzymes in both a cholestatic and hepatocellular pattern. Patient's liver enzymes downtrending AST and ALT however bilirubin has trended upward and was 4.1 today in the setting of cholelithiasis and elevation in AST and ALT suspicion is for cho ledocholithiasis and plan is for ERCP for treatment. Patient also being followed by the surgical service. Current Visit: Yes Status: Acute Code(s): E80.6 - OTHER DISORDERS OF BILIRUBIN METABOLISM SNOMED Code(s): 38819238 (2) Cholecystitis, acute with cholelithiasis Current Visit: Yes Status: Acute Code(s): K80.00 - CALCULUS OF GALLBLADDER W ACUTE CHOLECYST W/O OBSTRUCTION SNOMED Code(s): 49391535 (3) Transaminitis Current Visit: Yes Status: Acute Code(s): R74.0 - NONSPEC ELEV OF LEVELS OF TRANSAMNS & LACTIC ACID DEHYDRGNSE SNOMED Code(s): 895120213 Plan: Supportive care Nothing by mouth IV antibiotics Indocin ordered for postprocedure Plan for urgent ERCP for suspicion of choledocholithiasis Of the risks, benefits and side effects of both proceeding with the treatment plan as well as not proceeding with the ERCP have been explained to the patient and her family at length with all of her questions answered to her satisfaction Continue to monitor CBC, CMP Appreciate recommendations from surgical service Thank you for allowing us to participate in the care of the patient, we will continue to follow
[2019-06-28] MEDS ORDERED: SUCCINYLCHOLINE CHLORIDE 100 MG/5 ML SYR IV ONE (17:10)
[2019-06-28] MEDS ORDERED: fentaNYL (PF) 50 MCG/ML 2 ML AMP ONE (17:10)
[2019-06-28] MEDS ORDERED: LIDOCAINE 1% INJ 10MG/ML (20 ML MDV) ONE (17:10)
[2019-06-28] MEDS ORDERED: MIDAZOLAM 2 MG/2 ML VIAL ONE (17:10)
[2019-06-28] MEDS ORDERED: PROPOFOL 10 MG/ML 20 ML VIAL IV ONE (17:10)
[2019-06-28] MEDS ORDERED: LACTATED RINGERS 1,000 ML IV ONE (17:19)
[2019-06-28] MEDS ORDERED: IOPAMIDOL-300 50ML BTL MISCELLANE ONE (17:36)
--- NOTE | 2019-06-28 18:12 | P.PCN ---
Date of Procedure: 06/28/19 Description of Procedure: Brief history: 58-year-old female with a medical history significant for breast cancer status post mastectomy with plan for radiation at the [facility] on 07/03/22, hypertension and tobacco abuse who presented to the hospital with complaints of abdominal pain. The patient has been having intermittent episodes of abdominal pain over the past few months. She reports that the pain is severe in nature. She denies any nausea or vomiting. Pain is improved after being started on pain medications in the hospital. She underwent ultrasound of the liver on presentation with findings of cholelithiasis and gallbladder wall thickening suggestive of cholecystitis with CBD reported as normal. Liver enzymes were elevated in both a cholestatic and hepatocellular pattern on presentation with a total bilirubin 3.7, alkaline phosphatase 154, AST 1210, and ALT 1284. Patient had a WBC of 7.1, hemoglobin 13 and platelet count of 158,000 with a normal INR. She denies any fevers or chills. Procedure performed: ERCP with cholangiogram, sphincterotomy and balloon sweep of the common bile duct Preoperative diagnoses: Elevated bilirubin, abdominal pain, suspected choledocholithiasis, elevated liver enzymes, cholelithiasis IV sedation per anesthesia Estimated blood loss: Minimal. Procedure: After informed consent was obtained from the patient and after the risks benefits and complications including bleeding perforation and pancreatitis explained in detail the patient was brought into the endoscopy unit. The patient was placed in prone position and IV conscious sedation was administered by anesthesia under continuous monitoring. The Olympus side-viewing duodenoscope was then inserted into the mouth and esophagus intubated without any difficulty. The scope was gradually advanced into the stomach and duodenum. The major papilla was identified without any difficulty. A sphincterotome was used to cannulate the papilla with a wire passed into the common bile duct. Contrast was injected into the common bile duct with no distinct filling defects noted. An 8 mm sphincterotomy was then performed using the sphincterotome. The sphincterotome was then exchanged over the wire for a balloon extractor which was serially passed into the common bile duct to the bifurcation of the left and right hepatic ducts with the balloon inflated to 8.5 and then 11.5 mm and multiple passes of the bile duct performed. Some sludge and debris was noted fr om the bile duct with good flow of bile. The pancreatic duct was not injected. The patient tolerated the procedure well. Impression: CBD sludge/debris ERCP with cholangiogram, sphincterotomy and balloon sweep of the common bile duct Recommendations: The findings of this examination were discussed with the patient as well as a family. Okay for liquid diet, advance as tolerated. Further management per the surgical service. Continue to monitor liver enzymes and for signs and symptoms of post ERCP pancreatitis.
[2019-06-28] MEDS: ONDANSETRON 4 MG/2 ML VIAL IVP PRN (19:19)
[2019-06-28] MEDS: HEPARIN SODIUM,PORCINE 5,000 UNIT/ML 1 ML VIAL SQ SCH (20:23)
--- NOTE | 2019-06-28 23:23 | FL ---
EXAMINATION TYPE: FL ERCP DATE OF EXAM: 06/28/2019 CLINICAL HISTORY: Cholelithiasis. TECHNIQUE: Fluoroscopy. COMPARISON: None. FINDINGS: Fluoroscopic guidance was provided during ERCP procedure performed by GI doctor. A total of 12 seconds of fluoroscopic time was utilized during the procedure and 4 spot images was acquired. Images acquired show access and CBD opacification. Please refer to procedure note for further details . IMPRESSION: As Above.
[2019-06-29] MEDS: HYDROmorphone 0.5 MG/0.5 ML SYRINGE IVP PRN ×6 (03:39→23:15)
[2019-06-29 07:46] LABS: ALT 510 U/L (4-34); AST 101 U/L (14-36); African American GFR (CKD) >90 (>60 ml/min/1.73 sqM); Albumin 3.1 g/dL (3.5-5.0); Alkaline Phosphatase 128 U/L (38-126); Anion Gap 4 mmol/L; Blood Urea Nitrogen 9 mg/dL (7-17); Calcium 8.5 mg/dL (8.4-10.2); Carbon Dioxide 24 mmol/L (22-30); Chloride 105 mmol/L (98-107); Glucose 116 mg/dL (74-99); Non-African American GFR(CKD) >90 (>60 ml/min/1.73 sqM); Potassium 3.6 mmol/L (3.5-5.1); Sodium 133 mmol/L (137-145); Total Bilirubin 2.1 mg/dL (0.2-1.3); Total Protein 5.4 g/dL (6.3-8.2)
[2019-06-29] MEDS: SODIUM CHLORIDE 0.9% 1,000 ML IV SCH ×2 (08:52→20:06)
[2019-06-29] MEDS: HEPARIN SODIUM,PORCINE 5,000 UNIT/ML 1 ML VIAL SQ SCH ×2 (08:53→20:02)
[2019-06-29] MEDS: LISINOPRIL-HCTZ 20-12.5 MG 1 EACH TAB PO SCH (08:54)
[2019-06-29] MEDS: PANTOPRAZOLE 40 MG/10 ML VIAL IVP SCH (08:55)
--- NOTE | 2019-06-29 14:24 | P.PN ---
Subjective Progress Note Date: 06/29/19 CHIEF COMPLAINT: Choledocholithiasis HISTORY OF PRESENT ILLNESS: The patient is a 58-year-old female who presented with choledocholithiasis. Yesterday, she had an ERCP with enterotomy and passage of balloon. Her total bilirubin was 4.1, AST 1210, ALT 1284, alkaline phosphatase 151 of which has improved since her ERCP. She is comfortable. Her family is at bedside. She is tolerating a full liquid diet. No abdominal pain. ROS: No reports of nausea and vomiting. No bowel movements. No fevers or chills. No new chest pain. No productive sputum PHYSICAL EXAM: VITAL SIGNS: Reviewed CONSTITUTIONAL: Well developed and in no acute distress. EYES: Conjuctivae without sclera icterus. Extraocular movements grossly intact. HEAD, EARS, NOSE, THROAT: Moist buccal mucosa. Head is atraumatic, n ormocephalic. Hears conversational speech. No nasal drainage. NECK: Supple. No thyroidomegaly. RESPIRATORY: Non-labored respirations and equal bilateral excursions. CARDIOVASCULAR: Palpable 2+ radial pulses. Regular rate. Regular rhythm. ABDOMEN: Soft. No peritonitis. MUSCULOSKELETAL: No gross deformity of the lower extremities noted. No clubbing. No cyanosis. SKIN: Good skin turgor. Well perfused. NEUROLOGIC: Cranial nerves I through XII grossly intact. No focal or lateralizing signs. PSYCH: Appropriate affect. Alert and oriented to person, place and time. CLINICAL LABS: White blood cell count normal at 7.1, total bilirubin 2.1, AST 101, ALT 510, alkaline phosphatase 128 ASSESSMENT: 1. Choledocholithiasis 2. Symptomatic gallstones PLAN: 1. Monitor LFTs 2. Continue full liquid diet 3. Inpatient cholecystectomy advised following improvement of LFTs Objective - Vital Signs Vital signs: Vital Signs Temp 98.7 F 06/29/19 07:00 Pulse 74 06/29/19 07:00 Resp 16 06/29/19 07:00 BP 117/62 06/29/19 07:00 Pulse Ox 98 06/29/19 07:00 Intake & Output 06/28/19 06/29/19 06/29/19 18:59 06:59 18:59 Intake Total 700 120 Balance 700 120 Weight 78.925 kg Intake: IV 700 Oral 120 Other: # Voids 3 1 3 - Labs CBC & Chem 7: 06/28/19 07:05 06/29/19 06:30 Labs: Abnormal Lab Results - Last 24 Hours (Table) 06/29/19 Range/Units 06:30 Sodium 133 L (137-145) mmol/L Glucose 116 H (74-99) mg/dL Total Bilirubin 2.1 H (0.2-1.3) mg/dL AST 101 H (14-36) U/L ALT 510 H (4-34) U/L Alkaline Phosphatase 128 H (38-126) U/L Total Protein 5.4 L (6.3-8.2) g/dL Albumin 3.1 L (3.5-5.0) g/dL Assessment and Plan (1) Choledocholithiasis with acute cholecystitis with obstruction Current Visit: Yes Status: Acute Code(s): K80.43 - CALCULUS OF BILE DUCT W ACUTE CHOLECYSTITIS WITH OBSTRUCTION SNOMED Code(s): 77505581 (2) Chronic cholecystitis due to cholelithiasis with choledocholithiasis Current Visit: Yes Status: Acute Code(s): K80.64 - CALCULUS OF GB AND BILE DUCT W CHRONIC CHOLECYST W/O OBST SNOMED Code(s): 4870710226958739 (3) Hyperbilirubinemia Current Visit: Yes Status: Acute Code(s): E80.6 - OTHER DISORDERS OF BILIRUBIN METABOLISM SNOMED Code(s): 96093674 (4) Transaminitis Current Visit: Yes Status: Acute Code(s): R74.0 - NONSPEC ELEV OF LEVELS OF TRANSAMNS & LACTIC ACID DEHYDRGNSE SNOMED Code(s): 403345510
--- NOTE | 2019-06-29 16:05 | P.PN ---
Subjective Progress Note Date: 06/29/19 Principal diagnosis: Elevated liver enzymes, choledocholithiasis Patient is seen lying in bed reporting that she is still having abdominal pain however overall it is improved. No nausea or vomiting. She has tolerated a liquid diet. Objective - Vital Signs Vital signs: Vital Signs Temp 99.3 F 06/29/19 15:00 Pulse 90 06/29/19 15:00 Resp 18 06/29/19 15:00 BP 129/83 06/29/19 15:00 Pulse Ox 90 L 06/29/19 15:00 Intake & Output 06/28/19 06/29/19 06/29/19 18:59 06:59 18:59 Intake Total 700 120 600 Balance 700 120 600 Weight 78.925 kg Intake: IV 700 Intake, IV Titration 600 Amount Sodium Chloride 0.9% 1, 600 000 ml @ 75 mls/hr IV . [id number] [facility] Rx#:[id number] Oral 120 Other: # Voids 3 1 2 - Exam On physical examination, patient appears comfortable in no apparent distress. HEAD: Normocephalic, atraumatic. EYES: No scleral icterus. No conjunctival injection. MOUTH: No lesions, tongue midline. NECK: Trachea midline, no gross abnormalities. ABDOMEN: Soft, mildly tender to palpation. Bowel sounds are positive. No organomegaly. No guarding or rigidity. EXTREMITIES: No pedal edema. SKIN: No rashes, no jaundice. NEUROLOGIC: Alert and oriented x3. No focal deficits. - Labs CBC & Chem 7: 06/28/19 07:05 06/29/19 06:30 Labs: Abnormal Lab Results - Last 24 Hours (Table) 06/29/19 Range/Units 06:30 Sodium 133 L (137-145) mmol/L Glucose 116 H (74-99) mg/dL Total Bilirubin 2.1 H (0.2-1.3) mg/dL AST 101 H (14-36) U/L ALT 510 H (4-34) U/L Alkaline Phosphatase 128 H (38-126) U/L Total Protein 5.4 L (6.3-8.2) g/dL Albumin 3.1 L (3.5-5.0) g/dL Assessment and Plan (1) Hyperbilirubinemia Narrative/Plan: 58-year-old female who presents to the hospital due to abdominal pain, severe in the right upper quadrant with associated elevation in her liver enzymes in both a cholestatic and hepatocellular pattern. Patient was taken for ERCP yesterday due to uptrending bilirubin of 4.1 yesterday. ERCP with successful cholangiogram, sphincterotomy and balloon sweep productive of debris and sludge with good bowel flow after the procedure. Current Visit: Yes Status: Acute Code(s): E80.6 - OTHER DISORDERS OF BILIRUBIN METABOLISM SNOMED Code(s): 10443959 (2) Cholecystitis, acute with cholelithiasis Current Visit: Yes Status: Acute Code(s): K80.00 - CALCULUS OF GALLBLADDER W ACUTE CHOLECYST W/O OBSTRUCTION SNOMED Code(s): 60099345 (3) Transaminitis Current Visit: Yes Status: Acute Code(s): R74.0 - NONSPEC ELEV OF LEVELS OF TRANSAMNS & LACTIC ACID DEHYDRGNSE SNOMED Code(s): 363313696 Plan: Supportive care Diet advance to full liquid today Continue to monitor CBC, CMP Appreciate recommendations from surgical service, we will defer further management to them Thank you for allowing us to participate in the care of the patient, the GI service will stand by, please call us back with any questions or concerns
--- NOTE | 2019-06-29 17:44 | P.PN ---
Subjective Progress Note Date: 06/29/19 (delayed charting see at 1145) Principal diagnosis: abdominal pain Patient is a 58-year-old female with breast cancer with recent vasectomy due to start radiation on 07/03/22 at [facility], hypertension, and intermittent tobacco use who presented to the emergency department with abdominal pain. In the emergency department she underwent an extensive evaluation. Her vital signs within normal limits on admission. Her initial laboratory analysis showed sodium 136, glucose 127, bilirubin 3.7, AST 112 210, ALT 1284, alkaline phosphatase of 151. She underwent a liver ultrasound which showed gallstones consistent with acute cholecystitis. They were unable to visualize all of the common bile duct. She was admitted to Dr. Ohara we are asked to consult for medical management, she was transitioned to our serivce. ERCP on 06/27 with removal of debris and sludge. Plan is for inpatient silvia. Patient seen and examined at bedside. Still having some RUQ pain, shoulder pain is gone. No chest pain, SOB, or nausea. Feeling hungry. Objective - Vital Signs Vital signs: Vital Signs Temp 99.3 F 06/29/19 15:00 Pulse 90 06/29/19 15:00 Resp 18 06/29/19 15:00 BP 129/83 06/29/19 15:00 Pulse Ox 90 L 06/29/19 15:00 Intake & Output 06/28/19 06/29/19 06/29/19 18:59 06:59 18:59 Intake Total 700 120 600 Balance 700 120 600 Weight 78.925 kg Intake: IV 700 Intake, IV Titration 600 Amount Sodium Chloride 0.9% 1, 600 000 ml @ 75 mls/hr IV . [id number] [facility] Rx#:[id number] Oral 120 Other: # Voids 3 1 2 - Exam General: non toxic, no distress, appears at stated age Derm: warm, dry Head: atraumatic, normocephalic, symmetric Cardiovascular: S1S2 reg, no murmur, positive posterior tibial pulse bilateral, Lungs: CTA bilateral, no rhonchi, no rales , no accessory muscle use Abdominal: soft, +tender to palpation RUQ, no guarding, no appreciable organomegaly Ext: no gross muscle atrophy, no edema, no contractures Neuro: CN II-XI grossly intact, no focal neuro deficits Psych: Alert, oriented, appropriate affect - Labs CBC & Chem 7: 06/28/19 07:05 06/29/19 06:30 Labs: Abnormal Lab Results - Last 24 Hours (Table) 06/29/19 Range/Units 06:30 Sodium 133 L (137-145) mmol/L Glucose 116 H (74-99) mg/dL Total Bilirubin 2.1 H (0.2-1.3) mg/dL AST 101 H (14-36) U/L ALT 510 H (4-34) U/L Alkaline Phosphatase 128 H (38-126) U/L Total Protein 5.4 L (6.3-8.2) g/dL Albumin 3.1 L (3.5-5.0) g/dL Assessment and Plan Assessment: Acute cholecystitis, Transaminitis - ERCP with debris and sludge - Medically stable for silvia when surgery available. anticipate this to be done on 07/01/19. - pain control - antiemetics Breast cancer - awaiting to start radiation due to start 07/04/19 She will call [facility] to arrange follow-up and determine when she can start radiation. HTN, controlled - lisinopril - follow BP Patient is medically optimized for surgery. No further testing needed. DVT prophylaxis: Heparin Discussed with: Patient, nursing, Dr. Lee Anticipated discharge:[address]: home A total of 25 minutes was spent on the care of this complex patient more than 50% of the time was spent in counseling and care coordination.
[2019-06-30] MEDS: HYDROmorphone 0.5 MG/0.5 ML SYRINGE IVP PRN ×5 (04:04→21:39)
[2019-06-30 07:15] LABS: HCT 34.4 % (34.0-46.0); HGB 11.6 gm/dL (11.4-16.0); MCH 30.1 pg (25.0-35.0); MCHC 33.8 g/dL (31.0-37.0); Mean Platelet Volume 7.3; Platelet Count 152 k/uL (150-450); RBC 3.86 m/uL (3.80-5.40); RDW 12.8 % (11.5-15.5); WBC 7.6 k/uL (3.8-10.6)
[2019-06-30 07:33] LABS: ALT 327 U/L (4-34); AST 47 U/L (14-36); African American GFR (CKD) >90 (>60 ml/min/1.73 sqM); Albumin 3.1 g/dL (3.5-5.0); Alkaline Phosphatase 140 U/L (38-126); Anion Gap 5 mmol/L; Blood Urea Nitrogen 4 mg/dL (7-17); Calcium 8.4 mg/dL (8.4-10.2); Carbon Dioxide 25 mmol/L (22-30); Chloride 104 mmol/L (98-107); Glucose 84 mg/dL (74-99); Non-African American GFR(CKD) >90 (>60 ml/min/1.73 sqM); Potassium 3.7 mmol/L (3.5-5.1); Sodium 134 mmol/L (137-145); Total Bilirubin 1.4 mg/dL (0.2-1.3); Total Protein 5.4 g/dL (6.3-8.2)
[2019-06-30] MEDS: ONDANSETRON 4 MG/2 ML VIAL IVP PRN (07:40)
[2019-06-30] MEDS: PANTOPRAZOLE 40 MG/10 ML VIAL IVP SCH (09:07)
[2019-06-30] MEDS: HEPARIN SODIUM,PORCINE 5,000 UNIT/ML 1 ML VIAL SQ SCH ×2 (09:07→20:31)
[2019-06-30] MEDS: LISINOPRIL-HCTZ 20-12.5 MG 1 EACH TAB PO SCH (09:07)
[2019-06-30] MEDS: SODIUM CHLORIDE 0.9% 1,000 ML IV SCH ×2 (11:09→20:31)
--- NOTE | 2019-06-30 11:32 | P.PN ---
Subjective Progress Note Date: 06/30/19 Principal diagnosis: abdominal pain Patient is a 58-year-old female with breast cancer with recent vasectomy due to start radiation on 07/03/22 at [facility], hypertension, and intermittent tobacco use who presented to the emergency department with abdominal pain. In the emergency department she underwent an extensive evaluation. Her vital signs within normal limits on admission. Her initial laboratory analysis showed sodium 136, glucose 127, bilirubin 3.7, AST 112 210, ALT 1284, alkaline phosphatase of 151. She underwent a liver ultrasound which showed gallstones consistent with acute cholecystitis. They were unable to visualize all of the common bile duct. She was admitted to Dr. Ohara we are asked to consult for medical management, she was transitioned to our serivce. ERCP on 06/27 with removal of debris and sludge. Plan is for inpatient silvia. Liver enzymes improving. Patient seen and examined at bedside. had icreased RUQ pain after icecream this morning. No chest pain, no nausea, no shortness of breath, no constipation. Objective - Vital Signs Vital signs: Vital Signs Temp 98.9 F 06/30/19 07:30 Pulse 92 06/30/19 07:30 Resp 18 06/30/19 07:30 BP 130/76 06/30/19 07:30 Pulse Ox 98 06/30/19 07:30 Intake & Output 06/29/19 06/30/19 06/30/19 17:59 06:59 18:59 Intake Total Balance Intake: Intake, IV Titration Amount Sodium Chloride 0.9% 1, 000 ml @ 75 mls/hr IV . [id number] [facility] Rx#:[id number] Other: Voiding Method Toilet # Voids - Exam General: non toxic, no distress, appears at stated age, pleasant Derm: warm, dry Head: atraumatic, normocephalic, symmetric Cardiovascular: S1S2 reg, no murmur, positive posterior tibial pulse bilateral, Lungs: CTA bilateral, no accessory muscle use Abdominal: soft, +tender to palpation RUQ, no guarding, no appreciable organomegaly Ext: no gross muscle atrophy, no edema, no contractures Neuro: CN II-XI grossly intact, no focal neuro deficits Psych: Alert, oriented, appropriate affect - Labs CBC & Chem 7: 06/30/19 06:20 06/30/19 06:20 Labs: Abnormal Lab Results - Last 24 Hours (Table) 06/30/19 Range/Units 06:20 Sodium 134 L (137-145) mmol/L BUN 4 L (7-17) mg/dL Total Bilirubin 1.4 H (0.2-1.3) mg/dL AST 47 H (14-36) U/L ALT 327 H (4-34) U/L Alkaline Phosphatase 140 H (38-126) U/L Total Protein 5.4 L (6.3-8.2) g/dL Albumin 3.1 L (3.5-5.0) g/dL Assessment and Plan Assessment: Acute cholecystitis, Transaminitis - ERCP with debris and sludge - Medically stable for silvia. anticipate this to be done on 07/01/19. - pain control - antiemetics Breast cancer - awaiting to start radiation due to start 07/04/19 She will call [facility] to arrange follow-up and determine when she can start radiation. HTN, controlled - lisinopril - follow BP Patient is medically optimized for surgery. No further testing needed. Patient wants to leave tomorrow after surgery if possible. I have sent RX for norco to pharmacy and printed a work note to facilitate her discharge. DVT prophylaxis: Heparin Discussed with: Patient, nursing, Anticipated discharge: in AM Anticipated discharge place: home A total of 25 minutes was spent on the care of this complex patient more than 50% of the time was spent in counseling and care coordination.
--- NOTE | 2019-06-30 12:32 | P.PN ---
Subjective Progress Note Date: 06/30/19 CHIEF COMPLAINT: Choledocholithiasis HISTORY OF PRESENT ILLNESS: The patient is a 58-year-old female who presented with choledocholithiasis. Y Her total bilirubin was 4.1, AST 1210, ALT 1284, alkaline phosphatase 151 on admission. She reports right upper quadrant abdominal pain following milk and ice cream this morning. She has chosen to go back on clear liquid diet. ROS: No reports of nausea and vomiting. No bowel movements. No fevers or chills. No new chest pain. No productive sputum PHYSICAL EXAM: VITAL SIGNS: Reviewed CONSTITUTIONAL: Well developed and in no acute distress. EYES: Conjuctivae without sclera icterus. Extraocular movements grossly intact. HEAD, EARS, NOSE, THROAT: Moist buccal mucosa. Head is atraumatic, normocephalic. Hears conversational speech. No nasal drainage. NECK: Supple. No thyroidomegaly. RESPIRATORY: Non-labored respirations and equal bilateral excursions. CARDIOVASCULAR: Palpable 2+ radial pulses. Regular rate. Regular rhythm. ABDOMEN: Soft. Mild tenderness right upper quadrant. No peritonitis. MUSCULOSKELETAL: No gross deformity of the lower extremities noted. No clubbing. No cyanosis. SKIN: Good skin turgor. Well perfused. NEUROLOGIC: Cranial nerves I through XII grossly intact. No focal or lateralizing signs. PSYCH: Appropriate affect. Alert and oriented to person, place and time. CLINICAL LABS: White blood cell count normal at 7.1, total bilirubin 2.1 to 1.4, today ASSESSMENT: 1. Choledocholithiasis 2. Symptomatic gallstones PLAN: 1. Agree with clear liquid diet for now 2. Inpatient cholecystectomy during this current admission. Objective - Vital Signs Vital signs: Vital Signs Temp 98.9 F 06/30/19 07:30 Pulse 92 06/30/19 07:30 Resp 18 06/30/19 07:30 BP 130/76 06/30/19 07:30 Pulse Ox 98 06/30/19 07:30 Intake & Output 06/29/19 06/30/19 06/30/19 17:59 06:59 18:59 Intake Total Balance Intake: Intake, IV Titration Amount Sodium Chloride 0.9% 1, 000 ml @ 75 mls/hr IV . [id number] [facility] Rx#:[id number] Other: Voiding Method Toilet # Voids - Labs CBC & Chem 7: 06/30/19 06:20 06/30/19 06:20 Labs: Abnormal Lab Results - Last 24 Hours (Table) 06/30/19 Range/Units 06:20 Sodium 134 L (137-145) mmol/L BUN 4 L (7-17) mg/dL Total Bilirubin 1.4 H (0.2-1.3) mg/dL AST 47 H (14-36) U/L ALT 327 H (4-34) U/L Alkaline Phosphatase 140 H (38-126) U/L Total Protein 5.4 L (6.3-8.2) g/dL Albumin 3.1 L (3.5-5.0) g/dL Assessment and Plan (1) Choledocholithiasis with acute cholecystitis with obstruction Current Visit: Yes Status: Acute Code(s): K80.43 - CALCULUS OF BILE DUCT W ACUTE CHOLECYSTITIS WITH OBSTRUCTION SNOMED Code(s): 30327465 (2) Chronic cholecystitis due to cholelithiasis with choledocholithiasis Current Visit: Yes Status: Acute Code(s): K80.64 - CALCULUS OF GB AND BILE DUCT W CHRONIC CHOLECYST W/O OBST SNOMED Code(s): 4696738334945817 (3) Hyperbilirubinemia Current Visit: Yes Status: Acute Code(s): E80.6 - OTHER DISORDERS OF BILIRUBIN METABOLISM SNOMED Code(s): 06707693 (4) Transaminitis Current Visit: Yes Status: Acute Code(s): R74.0 - NONSPEC ELEV OF LEVELS OF TRANSAMNS & LACTIC ACID DEHYDRGNSE SNOMED Code(s): 600570882
[2019-07-01] MEDS: HYDROmorphone 0.5 MG/0.5 ML SYRINGE IVP PRN ×5 (02:05→20:53)
[2019-07-01] MEDS: LISINOPRIL-HCTZ 20-12.5 MG 1 EACH TAB PO SCH (07:12)
[2019-07-01] MEDS: HEPARIN SODIUM,PORCINE 5,000 UNIT/ML 1 ML VIAL SQ SCH ×2 (07:16→20:54)
[2019-07-01] MEDS: PANTOPRAZOLE 40 MG/10 ML VIAL IVP SCH (07:16)
[2019-07-01 09:20] LABS: ALT 244 U/L (4-34); AST 41 U/L (14-36); African American GFR (CKD) >90 (>60 ml/min/1.73 sqM); Albumin 3.1 g/dL (3.5-5.0); Alkaline Phosphatase 129 U/L (38-126); Anion Gap 4 mmol/L; Blood Urea Nitrogen 3 mg/dL (7-17); Calcium 8.5 mg/dL (8.4-10.2); Carbon Dioxide 28 mmol/L (22-30); Chloride 107 mmol/L (98-107); Glucose 94 mg/dL (74-99); Non-African American GFR(CKD) >90 (>60 ml/min/1.73 sqM); Potassium 3.6 mmol/L (3.5-5.1); Sodium 139 mmol/L (137-145); Total Bilirubin 1.2 mg/dL (0.2-1.3); Total Protein 5.4 g/dL (6.3-8.2)
[2019-07-01] MEDS: SODIUM CHLORIDE 0.9% 1,000 ML IV SCH ×2 (11:52→20:52)
[2019-07-01] MEDS ORDERED: IV FLUID CONTINUATION 900 ML IV ONE (13:05)
[2019-07-01] MEDS ORDERED: LACTATED RINGERS 1,000 ML IV ONE (13:25)
--- NOTE | 2019-07-01 14:36 | P.PN ---
Progress Note - Text Progress Note Date: 07/01/19 as above. Patient still having upper abdominal pain after solid foods. Her enzymes have been improving. We'll proceed with laparoscopic, possible open cholecystectomy at this time. Risks of bleeding, infection, bile leak, bile duct injury, retained common bile duct stone, trocar injury, conversion to an open procedure, hernia, anesthesia related complications were reviewed. The patient understands and wishes to proceed.
[2019-07-01] MEDS ORDERED: PROPOFOL 10 MG/ML 20 ML VIAL IV ONE (14:41)
[2019-07-01] MEDS ORDERED: GLYCOPYRROLATE 0.2 MG/ML 2 ML VIAL ONE (14:41)
[2019-07-01] MEDS ORDERED: fentaNYL (PF) 50 MCG/ML 2 ML AMP ONE (14:41)
[2019-07-01] MEDS ORDERED: MIDAZOLAM 2 MG/2 ML VIAL ONE (14:41)
[2019-07-01] MEDS ORDERED: SUCCINYLCHOLINE CHLORIDE 100 MG/5 ML SYR IV ONE (14:41)
[2019-07-01] MEDS ORDERED: ceFAZolin 1,000 MG VIAL ONE (14:41)
[2019-07-01] MEDS ORDERED: LIDOCAINE 1% INJ 10MG/ML (20 ML MDV) ONE (14:41)
[2019-07-01] MEDS ORDERED: ROCURONIUM BROMIDE 10 MG/ML 5 ML VIAL IV ONE (14:41)
[2019-07-01] MEDS ORDERED: NEOSTIGMINE 1 MG/ML 10 ML VIAL ONE (14:41)
[2019-07-01] MEDS ORDERED: SODIUM CHLORIDE 0.9% 50 ML with ceFAZolin 2,000 MG IV ONE ×2 (15:10)
[2019-07-01] MEDS ORDERED: BUPIVACAINE (PF) 0.25% 30 ML VIAL SQ ONE (15:13)
[2019-07-01] MEDS: HYDROmorphone 1 MG/ML 1 ML SYRINGE IVP ONE ×2 (17:05→17:32)
--- NOTE | 2019-07-01 17:11 | P.OP ---
Date of Procedure: 07/01/19 Procedure(s) Performed: PREOPERATIVE DIAGNOSIS: Acute cholecystitis with choledocholithiasis POSTOPERATIVE DIAGNOSIS: Same PROCEDURE: Laparoscopic cholecystectomy SURGEON: Mayda EBL: Minimal see anesthesia record ANESTHESIA: Gen. COMPLICATIONS: None OPERATIVE PROCEDURE: The patient was brought and placed on the operating room table in the supine position. The patient was placed under general anesthesia at that time. The abdomen was prepped and draped in the usual sterile fashion. Prior to incision the patient's gallbladder was fairly easily palpable in the right upper quadrant. A small vertical infraumbilical incision was made. The fascia was grasped with the Yazmin forceps. The fascia was retracted anteriorly. The Veress needle was advanced into the peritoneal cavity. The saline drop test was normal. Insufflation took place up to 15 mmHg. A 5 mm optical trocar was advanced and the peritoneal cavity. 2 additional 5 mm trochars were placed in the right upper quadrant under direct visualization. A 12 mm trocar was advanced into the epigastric incision site. The gallbladder was significantly inflamed. The wall was erythematous and thickened. An opening was made in the fundus of the gallbladder and some of the gallbladder fluid was evacuated. Unfortunately the gallbladder remained fairly distended because of the significant volume of stones and sludge. The gallbladder was retracted superiorly and laterally. The peritoneum overlying the infundibulum was bluntly dissected. The patient's cystic duct was visualized. The cystic duct was then divided after placement of 3 12 mm clips on the patient's side and one on the specimen side. The cystic artery was identified and clipped as well. A small vessel was seen along the gallbladder fossa and clipped as well. The gallbladder was then removed from the liver bed using electrocautery. The gallbladder was then removed from the epigastric trocar site with an Endo Catch bag. This required significant lengthening of the incision and the fascia in order to remove this large specimen. I would estimate our fascial incision at 4-5 cm in length. The gallbladder fossa was irrigated with saline. There was no evidence of any bleeding or biliary drainage seen. The fascia at the 12 millimeter site was closed using a running 0 Vicryl stitch. The trochars were then removed. The skin at all 4 sites was closed using a 4-0 Monocryl stitch. Skin glue was utilized on the incision sites. At the end of this procedure the sponge and needle counts were correct. DISPOSITION: Stable to the recovery room
[2019-07-01] MEDS: HYDROcodone/APAP 5-325MG 1 EACH TAB PO PRN (23:16)
[2019-07-01] MEDS: PIPERACILLIN-TAZOBACTAM 3.375 GM in SODIUM CHLORIDE 0.9% 100 ML IVPB SCH (23:17)
[2019-07-02] MEDS: HYDROmorphone 0.5 MG/0.5 ML SYRINGE IVP PRN ×2 (00:47→08:45)
[2019-07-02] MEDS: HYDROcodone/APAP 5-325MG 1 EACH TAB PO PRN (06:03)
[2019-07-02 08:16] LABS: Basophils % (A) 0 %; Eosinophils # (A) 0.1 k/uL (0-0.7); Eosinophils % (A) 1 %; HCT 32.3 % (34.0-46.0); HGB 10.8 gm/dL (11.4-16.0); Lymphocytes # (A) 1.9 k/uL (1.0-4.8); Lymphocytes % (A) 26 %; MCH 29.7 pg (25.0-35.0); MCHC 33.3 g/dL (31.0-37.0); MCV 88.9 fL (80.0-100.0); Mean Platelet Volume 7.1; Monocytes # (A) 0.3 k/uL (0-1.0); Monocytes % (A) 4 %; Neutrophils # (A) 4.7 k/uL (1.3-7.7); Neutrophils % (A) 67 %; Platelet Count 193 k/uL (150-450); RBC 3.64 m/uL (3.80-5.40); RDW 12.9 % (11.5-15.5); WBC 7.1 k/uL (3.8-10.6)
[2019-07-02 08:40] LABS: ALT 180 U/L (4-34); AST 51 U/L (14-36); African American GFR (CKD) >90 (>60 ml/min/1.73 sqM); Albumin 2.8 g/dL (3.5-5.0); Alkaline Phosphatase 122 U/L (38-126); Anion Gap 5 mmol/L; Blood Urea Nitrogen 4 mg/dL (7-17); Calcium 8.2 mg/dL (8.4-10.2); Carbon Dioxide 24 mmol/L (22-30); Chloride 107 mmol/L (98-107); Glucose 84 mg/dL (74-99); Non-African American GFR(CKD) >90 (>60 ml/min/1.73 sqM); Potassium 3.3 mmol/L (3.5-5.1); Sodium 136 mmol/L (137-145); Total Bilirubin 0.9 mg/dL (0.2-1.3)
[2019-07-02] MEDS: HEPARIN SODIUM,PORCINE 5,000 UNIT/ML 1 ML VIAL SQ SCH ×2 (08:44→21:43)
[2019-07-02] MEDS: PANTOPRAZOLE 40 MG/10 ML VIAL IVP SCH (08:44)
[2019-07-02] MEDS: PIPERACILLIN-TAZOBACTAM 3.375 GM in SODIUM CHLORIDE 0.9% 100 ML IVPB SCH ×2 (08:45→17:55)
[2019-07-02] MEDS: LISINOPRIL-HCTZ 20-12.5 MG 1 EACH TAB PO SCH (08:45)
--- NOTE | 2019-07-02 10:46 | P.PN ---
<Milady Lara Francis - Last Filed: 07/02/19 10:42> Subjective Progress Note Date: 07/02/19 CHIEF COMPLAINT: Abdominal pain HISTORY OF PRESENT ILLNESS: 58-year-old female who is status post laparoscopic cholecystectomy with Dr. Ohara. Postoperative #1. Patient examined this sussy boucher at the bedside. Patient reports her pain was 15/10 overnight. She states her pain is improved this morning but is still not controlled. She is receiving [place] and IV Dilaudid. She reports no energy and states "I dont even feel like getting up to take a shower". Bilirubin 0.9. AST 51. ALT 180. Potassium 3.3 PHYSICAL EXAM: VITAL SIGNS: Reviewed. GENERAL: Well-developed in no acute distress. HEENT: No sclera icterus. Extraocular movements grossly intact. Moist buccal mucosa. Head is atraumatic, normocephalic. ABDOMEN: Soft. Nondistended. Laparoscopic surgical sites clean dry and intact without drainage or erythema. NEUROLOGIC: Alert and oriented. Cranial nerves II through XII grossly intact. ASSESSMENT: 1. Right upper quadrant abdominal pain 2. Acute cholecystitis 3. Cholelithiasis, choledocholithiasis 4. Hyperbilirubinemia 5. Transaminitis PLAN: Continue diet Pain control. Continue Malibu and IV Dilaudid. Add IV Toradol Incentive spirometer Activity as tolerated Replace potassium Patient lives 2.5 hours away and states she is not ready to be discharged home today. Anticipate discharge tomorrow morning if patient is feeling better and pain tolerable. Nurse practitioner note has been reviewed by physician. Signing provider agrees with the documented findings, assessment, and plan of care. Objective - Vital Signs Vital signs: Vital Signs Temp 98 F 07/02/19 07:03 Pulse 86 07/02/19 07:32 Resp 16 07/02/19 07:32 BP 137/78 07/02/19 07:03 Pulse Ox 97 07/02/19 07:03 Intake & Output 07/01/19 07/02/19 07/02/19 18:59 06:59 18:59 Intake Total 1650 1200 Output Total 15 Balance 1635 1200 Weight 78.925 kg Intake: IV 1650 1200 Sodium Chloride 0.9% 1, 600 1200 000 ml @ 75 mls/hr IV . [id number] [facility] Rx#:[id number] Oral 0 Output: Estimated Blood Loss 15 Other: Voiding Method Toilet Toilet # Voids 3 1 1 - Labs CBC & Chem 7: 07/02/19 07:26 07/02/19 07:26 Labs: Abnormal Lab Results - Last 24 Hours (Table) 07/02/19 07/02/19 Range/Units 07:26 07:26 RBC 3.64 L (3.80-5.40) m/uL Hgb 10.8 L (11.4-16.0) gm/dL Hct 32.3 L (34.0-46.0) % Sodium 136 L (137-145) mmol/L Potassium 3.3 L (3.5-5.1) mmol/L BUN 4 L (7-17) mg/dL Calcium 8.2 L (8.4-10.2) mg/dL AST 51 H (14-36) U/L ALT 180 H (4-34) U/L Total Protein 5.0 L (6.3-8.2) g/dL Albumin 2.8 L (3.5-5.0) g/dL <Anthony Ohara - Last Filed: 07/02/19 16:58> Subjective As above. Patient doing well. Pain is improving throughout the day. Better pain control with Toradol then Dilaudid. Anticipate discharge tomorrow. Follow-up one week. Objective - Vital Signs Vital signs: Vital Signs Temp 98.4 F 07/02/19 13:50 Pulse 89 07/02/19 13:50 Resp 16 07/02/19 13:50 BP 113/65 07/02/19 13:50 Pulse Ox 94 L 07/02/19 13:50 Intake & Output 07/01/19 07/02/19 07/02/19 18:59 06:59 18:59 Intake Total 1650 1200 0 Output Total 15 Balance 1635 1200 0 Weight 78.925 kg Intake: IV 1650 1200 Sodium Chloride 0.9% 1, 600 1200 000 ml @ 75 mls/hr IV . [id number] [facility] Rx#:[id number] Oral 0 0 Output: Estimated Blood Loss 15 Other: Voiding Method Toilet Toilet # Voids 3 1 2 - Labs CBC & Chem 7: 07/02/19 07:26 07/02/19 07:26 Labs: Abnormal Lab Results - Last 24 Hours (Table) 07/02/19 07/02/19 Range/Units 07:26 07:26 RBC 3.64 L (3.80-5.40) m/uL Hgb 10.8 L (11.4-16.0) gm/dL Hct 32.3 L (34.0-46.0) % Sodium 136 L (137-145) mmol/L Potassium 3.3 L (3.5-5.1) mmol/L BUN 4 L (7-17) mg/dL Calcium 8.2 L (8.4-10.2) mg/dL AST 51 H (14-36) U/L ALT 180 H (4-34) U/L Total Protein 5.0 L (6.3-8.2) g/dL Albumin 2.8 L (3.5-5.0) g/dL
[2019-07-02] MEDS: POTASSIUM CHLORIDE ER 20 MEQ TAB.ER PO SCH ×2 (10:56→13:16)
--- NOTE | 2019-07-02 12:53 | P.PN ---
Subjective Progress Note Date: 07/02/19 Principal diagnosis: Abdominal pain Patient is feeling better today she just had her gallbladder out yesterday. Pain is controlled down to 06/03. Started eating this morning, no nausea or vomiting. Objective - Vital Signs Vital signs: Vital Signs Temp 98 F 07/02/19 07:03 Pulse 86 07/02/19 07:32 Resp 16 07/02/19 07:32 BP 137/78 07/02/19 07:03 Pulse Ox 97 07/02/19 07:03 Intake & Output 07/01/19 07/02/19 07/02/19 18:59 06:59 18:59 Intake Total 1650 1200 Output Total 15 Balance 1635 1200 Weight 78.925 kg Intake: IV 1650 1200 Sodium Chloride 0.9% 1, 600 1200 000 ml @ 75 mls/hr IV . [id number] [facility] Rx#:[id number] Oral 0 Output: Estimated Blood Loss 15 Other: Voiding Method Toilet Toilet # Voids 3 1 1 - Exam Constitutional: No acute distress, conversant, pleasant Eyes:Anicteric sclerae, moist conjunctiva, no lid-lag, PERRLA, ENMT: Oropharynx clear, no erythema, exudates Neck: Supple, FROM, no masses, or JVD, No carotid bruits, No thyromegaly Lungs: Clear to auscultation, Clear to percussion, Normal respiratory effort, no accessory muscle use Cardiovascular: Heart regular in rate and rhythm, No murmurs, gallops, or rubs, No peripheral edema Abdominal: Soft, Nontender, no guarding, rebound or rigidity, Normoactive bowel sounds, No hepatomegaly, No splenomegaly, No palpable mass Skin: Normal temperature, tone, texture, turgor, no induration, No subcutaneous nodules, No rash, lesions, No ulcers Extremities: No digital cyanosis, No clubbing, Pedal pulses intact and symmetrical, Radial pulses intact and symmetrical, No calf tenderness Psychiatric: Alert and oriented to person, place and time, appropriate affect, intact judgement Neuro: Muscles Strength 5/5 in all 4 extremities, Sensation to light touch grossly present throughout, Cranial nerves II-XII grossly intact, no focal sensory deficits - Labs CBC & Chem 7: 07/02/19 07:26 07/02/19 07:26 Labs: Abnormal Lab Results - Last 24 Hours (Table) 07/02/19 07/02/19 Range/Units 07:26 07:26 RBC 3.64 L (3.80-5.40) m/uL Hgb 10.8 L (11.4-16.0) gm/dL Hct 32.3 L (34.0-46.0) % Sodium 136 L (137-145) mmol/L Potassium 3.3 L (3.5-5.1) mmol/L BUN 4 L (7-17) mg/dL Calcium 8.2 L (8.4-10.2) mg/dL AST 51 H (14-36) U/L ALT 180 H (4-34) U/L Total Protein 5.0 L (6.3-8.2) g/dL Albumin 2.8 L (3.5-5.0) g/dL Assessment and Plan Plan: Acute cholecystitis, with transaminitis - s/p cholecyctectomy 06/30 - surgery following - pain control - antiemetics Breast cancer - awaiting to start radiation due to start 07/04/19 She will call [facility] to arrange follow-up and determine when she can start radiation. HTN, controlled - lisinopril - follow BP DVT prophylaxis: Heparin Discussed with: Patient, nursing, Anticipated discharge: in AM Anticipated discharge place: home A total of 25 minutes was spent on the care of this complex patient more than 50% of the time was spent in counseling and care coordination.
[2019-07-02] MEDS: KETOROLAC 30 MG/ML 1 ML VIAL IVP SCH ×2 (13:15→17:54)
[2019-07-03] MEDS: PIPERACILLIN-TAZOBACTAM 3.375 GM in SODIUM CHLORIDE 0.9% 100 ML IVPB SCH ×2 (00:07→09:01)
[2019-07-03] MEDS: KETOROLAC 30 MG/ML 1 ML VIAL IVP SCH ×2 (00:08→05:23)
[2019-07-03] MEDS: SODIUM CHLORIDE 0.9% 1,000 ML IV SCH ×2 (06:37→06:38)
[2019-07-03 08:14] VITALS: BP 137/81; PULSE 59; RESP 16; TEMP 97.9
[2019-07-03] MEDS: LISINOPRIL-HCTZ 20-12.5 MG 1 EACH TAB PO SCH (08:25)
[2019-07-03] MEDS: HEPARIN SODIUM,PORCINE 5,000 UNIT/ML 1 ML VIAL SQ SCH (08:25)
[2019-07-03] MEDS ORDERED: PANTOPRAZOLE 40 MG TABLET PO SCH (09:00)
--- NOTE | 2019-07-03 09:47 | P.PN ---
<Milady Lara - Last Filed: 07/03/19 09:45> Subjective Progress Note Date: 07/03/19 CHIEF COMPLAINT: Abdominal pain HISTORY OF PRESENT ILLNESS: 58-year-old female who is status post laparoscopic cholecystectomy with Dr. Ohara. Patient examined at the bedside. Patient is dr guzman and sitting in the chair. She is anxious to be discharged home this morning. Patient currently rating her pain 2/10. Denies nausea or vomiting. Tolerating diet. PHYSICAL EXAM: VITAL SIGNS: Reviewed. GENERAL: Well-developed in no acute distress. HEENT: No sclera icterus. Extraocular movements grossly intact. Moist buccal mucosa. Head is atraumatic, normocephalic. ABDOMEN: Soft. Nondistended. Laparoscopic surgical sites clean dry and intact without drainage or erythema. NEUROLOGIC: Alert and oriented. Cranial nerves II through XII grossly intact. ASSESSMENT: 1. Right upper quadrant abdominal pain 2. Acute cholecystitis 3. Cholelithiasis, choledocholithiasis 4. Hyperbilirubinemia 5. Transaminitis PLAN: Patient is cleared for discharge home today from a surgical standpoint. She is to follow-up with Dr. Ohara in one week. Nurse practitioner note has been reviewed by physician. Signing provider agrees with the documented findings, assessment, and plan of care. Objective - Vital Signs Vital signs: Vital Signs Temp 97.9 F 07/03/19 07:00 Pulse 59 L 07/03/19 07:00 Resp 16 07/03/19 07:00 BP 137/81 07/03/19 07:00 Pulse Ox 96 07/03/19 07:00 Intake & Output 07/02/19 07/03/19 07/03/19 18:59 06:59 18:59 Intake Total 0 100 Balance 0 100 Intake: Intake, IV Titration 100 Amount Piperacillin-Tazobactam 3 100 .375 gm In Sodium Chloride 0.9% 100 ml @ 25 mls/hr IVPB Q8HR [facility] Rx# :[id number] Oral 0 Other: Voiding Method Toilet Toilet Toilet # Voids 2 2 - Labs CBC & Chem 7: 07/02/19 07:26 07/02/19 07:26 <Anthony Ohara - Last Filed: 07/03/19 11:28> Objective - Vital Signs Vital signs: Vital Signs Temp 97.9 F 07/03/19 07:00 Pulse 59 L 07/03/19 07:00 Resp 16 07/03/19 07:00 BP 137/81 07/03/19 07:00 Pulse Ox 96 07/03/19 07:00 Intake & Output 07/02/19 07/03/19 07/03/19 18:59 06:59 18:59 Intake Total 0 100 Balance 0 100 Intake: Intake, IV Titration 100 Amount Piperacillin-Tazobactam 3 100 .375 gm In Sodium Chloride 0.9% 100 ml @ 25 mls/hr IVPB Q8HR [facility] Rx# :[id number] Oral 0 Other: Voiding Method Toilet Toilet Toilet # Voids 2 2 - Labs CBC & Chem 7: 07/02/19 07:26 07/02/19 07:26
--- NOTE | 2019-07-03 10:34 | P.DS ---
Providers Date of admission: 06/27/19 15:56 Expected date of discharge: 07/03/19 Attending physician: Samaria Hartman MD Consults: 06/27/19 15:44 Consult Physician Urgent Consulting Provider: Anthony Ohara Consult Reason/Comments: Acute cholecystitis, cholelithiasis Do you want consulting provider notified?: Yes Primary care physician: Physician Nonstaff Hospital Course: 58-year-old female with breast cancer with recent mastectomy due to start radiation on 07/03/22 at [facility], hypertension, and intermittent tobacco use who presented to the emergency department with abdominal pain. Pain in RUQ and radiate to back and right shoulder. + nausea and vomiting, decreased appetite, no diarrhea or constipation. No fevers. In the emergency department she underwent an extensive evaluation. Her vital signs within normal limits on admission. Her initial laboratory analysis showed sodium 136, glucose 127, bilirubin 3.7, AST 1210, ALT 1284, alkaline phosphatase of 151. She underwent a liver ultrasound which showed gallstones consistent with acute cholecystitis. CBD was not visualized on the ultrasound. Patient was admitted, was seen by GI who did ERCP with cholangiogram, sphincterotomy and balloon sweep of the common bile duct. It was reported that plenty of sludge and stones came out after the sphincterotomy. Patient was also seen in consultation with general surgery who performed a cholecystectomy on 06/30. Liver enzymes and the rest of lab work continued to improve with the above procedures. The patient is feeling great. She'll be discharged home in stable condition. She has follow-up appointment with general surgery in the office. Time for discharge 35 minutes. Patient Condition at Discharge: Fair Plan - Discharge Summary Discharge Rx Participant: Yes New Discharge Prescriptions: New HYDROcodone/APAP 5-325MG [Backus 5-325] 1 tab PO Q6HR PRN 3 Days #12 tab PRN Reason: Pain Continue Lisinopril-Hctz 20-12.5 mg [Zestoretic 20-12.5] 1 tab PO DAILY Ibuprofen [Advil] 800 mg PO Q8HR PRN PRN Reason: Pain Acetaminophen Tab [Tylenol] 650 mg PO Q6H PRN PRN Reason: Pain Discharge Medication List Acetaminophen Tab [Tylenol] 650 mg PO Q6H PRN 06/27/19 [History] Ibuprofen [Advil] 800 mg PO Q8HR PRN 06/27/19 [History] Lisinopril-Hctz 20-12.5 mg [Zestoretic 20-12.5] 1 tab PO DAILY 06/27/19 [History] HYDROcodone/APAP 5-325MG [Backus 5-325] 1 tab PO Q6HR PRN 3 Days #12 tab 06/30/19 [Rx] Follow up Appointment(s)/Referral(s): Anthony Ohara MD [Medical Doctor] - 07/11/19 10:00 am Nonstaff,Physician [Primary Care Provider] - 1-2 days Patient Instructions/Handouts: *Surgery [facility] - ([facility]) Laparoscopic Cholecystectomy, Laparoscopic Cholecystectomy (DC) Activity/Diet/Wound Care/Special Instructions: No driving while taking Backus No lifting over 10 pounds You may shower. No soaking or tub baths Very light activity until you are reevaluated at your follow up appointment with your surgeon Discharge/Stand Alone Forms: Work/Release Restrictions Form
[2019-07-03] MEDS: HYDROcodone/APAP 5-325MG 1 EACH TAB PO PRN (11:03)
--- NOTE | 2019-07-03 16:10 | P.PN ---
Subjective Progress Note Date: 07/01/19 Principal diagnosis: Abdominal pain Patient was having severe pain in the abdomen, will go for cholecystectomy today. Objective - Vital Signs Vital signs: Vital Signs Temp 97.9 F 07/03/19 07:00 Pulse 59 L 07/03/19 07:00 Resp 16 07/03/19 07:00 BP 137/81 07/03/19 07:00 Pulse Ox 96 07/03/19 07:00 Intake & Output 07/02/19 07/03/19 07/03/19 18:59 06:59 18:59 Intake Total 0 100 Balance 0 100 Intake: Intake, IV Titration 100 Amount Piperacillin-Tazobactam 3 100 .375 gm In Sodium Chloride 0.9% 100 ml @ 25 mls/hr IVPB Q8HR [facility] Rx# :[id number] Oral 0 Other: Voiding Method Toilet Toilet Toilet # Voids 2 2 - Exam Constitutional: No acute distress, conversant, pleasant Eyes:Anicteric sclerae, moist conjunctiva, no lid-lag, PERRLA, ENMT: Oropharynx clear, no erythema, exudates Neck: Supple, FROM, no masses, or JVD, No carotid bruits, No thyromegaly Lungs: Clear to auscultation, Clear to percussion, Normal respiratory effort, no accessory muscle use Cardiovascular: Heart regular in rate and rhythm, No murmurs, gallops, or rubs, No peripheral edema Abdominal: Soft, Nontender, no guarding, rebound or rigidity, Normoactive bowel sounds, No hepatomegaly, No splenomegaly, No palpable mass Skin: Normal temperature, tone, texture, turgor, no induration, No subcutaneous nodules, No rash, lesions, No ulcers Extremities: No digital cyanosis, No clubbing, Pedal pulses intact and symmetrical, Radial pulses intact and symmetrical, No calf tenderness Psychiatric: Alert and oriented to person, place and time, appropriate affect, intact judgement Neuro: Muscles Strength 5/5 in all 4 extremities, Sensation to light touch grossly present throughout, Cranial nerves II-XII grossly intact, no focal sensory deficits - Labs CBC & Chem 7: 07/02/19 07:26 07/02/19 07:26 Assessment and Plan Plan: Acute cholecystitis, with transaminitis - Going for cholecyctectomy - surgery following - pain control - antiemetics Breast cancer - awaiting to start radiation due to start 07/04/19 She will call [facility] to arrange follow-up and determine when she can start radiation. HTN, controlled - lisinopril - follow BP DVT prophylaxis: Heparin Discussed with: Patient, nursing, Anticipated discharge: in AM Anticipated discharge place: home A total of 25 minutes was spent on the care of this complex patient more than 50% of the time was spent in counseling and care coordination.
== END 2019-07-03 11:10 | disposition home or self-care (01) | DRG 419 ==
LOC: EC 12:50 → 4SSUR 15:56
PROVIDERS: ADMIT Family Medicine; ATTEND Family Medicine
PROC: 0FC98ZZ Extirpation of Matter from Common Bile Duct, Via Natural or Artificial Opening Endoscopic (ICD-10-PCS; 2019-06-28)
PROC: 0FT44ZZ Resection of Gallbladder, Percutaneous Endoscopic Approach (ICD-10-PCS; principal; 2019-07-01 14:25)
DX: K80.67 Calculus of gallbladder and bile duct with acute and chronic cholecystitis with obstruction (principal); C50.919 Malignant neoplasm of unspecified site of unspecified female breast; F17.200 Nicotine dependence, unspecified, uncomplicated; I10 Essential (primary) hypertension; R12 Heartburn; R74.0 Nonspecific elevation of levels of transaminase and lactic acid dehydrogenase [LDH]; H26.9 Unspecified cataract; Z90.10 Acquired absence of unspecified breast and nipple; Z79.899 Other long term (current) drug therapy; Z82.49 Family history of ischemic heart disease and other diseases of the circulatory system; Z82.5 Family history of asthma and other chronic lower respiratory diseases; Z83.3 Family history of diabetes mellitus
CPT/HCPCS: 36415; 43262; 74330; 76705; 80053; 81001; 82150; 83690; 83735; 85025; 85027; 85610; 85730; 88304; 93005; 96361; 96365; 96375; 96376; 99285